=== PATIENT | male | born 1985 | race Caucasian/White ===

== ENCOUNTER 2018-10-08 13:50 | Inpatient (IN) | payer MEDICARE, OTHER ==
[2018-10-08 14:43] VITALS: BMI 13.3
[2018-10-08] MEDS ORDERED: diazePAM 5 MG TABLET PO ONE (15:30)
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
[2018-10-08] MEDS ORDERED: METHADONE HCL 10 MG TABLET (FOR DETOX USE ONLY) PO ONE ×2 (15:45→23:00)
[2018-10-08] MEDS ORDERED: LOPERAMIDE HCL 2 MG CAPSULE PO PRN (15:46)
[2018-10-08] MEDS ORDERED: MAGNESIUM CITRATE 300 ML BOTTLE PO PRN (15:46)
[2018-10-08] MEDS ORDERED: ACETAMINOPHEN 325 MG TABLET (FP) PO PRN (15:46)
[2018-10-08] MEDS ORDERED: MAGNESIUM HYDROX 2400MG/30ML ORAL SUSPENSION 30 ML CUP PO PRN (15:46)
[2018-10-08] MEDS ORDERED: MAG HYDROX/AL HYDROX/SIMETH 30 ML UNIT-DOSE CUP PO PRN (15:46)
[2018-10-08] MEDS ORDERED: MENTHOL/PHENOL 1 EACH UD MM PRN (15:46)
[2018-10-08] MEDS ORDERED: SODIUM CHLORIDE NASAL SPRAY 44 ML BOTTLE NS PRN (15:54)
[2018-10-08] MEDS: THIAMINE HCL 100 MG TABLET (FP) PO SCH (22:22)
[2018-10-08] MEDS: diazePAM 5 MG TABLET PO SCH (22:23)
[2018-10-08] MEDS: SULFAMETHOXAZOLE/TRIMETHOPRIM 800MG/160MG D.S. TABLET PO SCH (22:23)
[2018-10-08] MEDS: BACLOFEN 10 MG TABLET (FP) PO SCH (22:23)
[2018-10-08] MEDS: MELATONIN 5 MG TABLETS PO PRN (22:25)
[2018-10-09] MEDS: diazePAM 5 MG TABLET PO SCH ×3 (05:32→22:26)
[2018-10-09] MEDS: BACLOFEN 10 MG TABLET (FP) PO SCH ×3 (05:32→22:26)
[2018-10-09] MEDS ORDERED: METHADONE HCL 10 MG TABLET (FOR DETOX USE ONLY) PO SCH (10:00)
--- NOTE | 2018-10-09 10:01 | CONSULT ---
[facility] Psychiatric Consult - Data Date of interview: 10/09/18 Admission source: [facility] Identifying data: Corn Cooker approached patient for psychiatric consultation. Patient refused. Stated, " I don't need to see you."
[2018-10-09 10:04] LABS: HEMATOCRIT 21.8 % (35.4-49); HEMOGLOBIN 7.2 GM/dL (11.7-16.9); MCH 26.7 pg (25.7-33.7); MCHC 33.1 g/dl (32.0-35.9); MEAN CELL VOLUME 80.9 fl (80-96); PLATELET COUNT 420 K/MM3 (134-434); RBC 2.69 M/mm3 (4.00-5.60); RDW 21.5 % (11.9-15.9); WHITE BLOOD COUNT 6.8 K/mm3 (4.0-10.0)
[2018-10-09 10:26] LABS: ALBUMIN 2.5 g/dl (3.4-5.0); ALK PHOS 462 U/L (45-117); ANION GAP 8 MMOL/L (8-16); BILIRUBIN,TOTAL 0.2 mg/dL (0.2-1); BLOOD UREA NITROGEN 36 mg/dL (7-18); CALCIUM 8.3 mg/dL (8.5-10.1); CHLORIDE 102 mmol/L (98-107); CO2 23 mmol/L (21-32); CREATININE 1.4 mg/dL (0.55-1.3); GLUCOSE,RANDOM 106 mg/dL (74-106); POTASSIUM 4.9 mmol/L (3.5-5.1); SGOT/AST 431 U/L (15-37); SGPT/ALT 296 U/L (13-61); SODIUM 133 mmol/L (136-145)
[2018-10-09] MEDS: PRENATAL VITAMINS W/ FOLIC ACID TABLET (FP) PO SCH (11:30)
[2018-10-09] MEDS: SULFAMETHOXAZOLE/TRIMETHOPRIM 800MG/160MG D.S. TABLET PO SCH ×2 (11:31→22:26)
[2018-10-09] MEDS: diazePAM 5 MG TABLET PO PRN (11:31)
--- NOTE | 2018-10-09 11:37 | EKG ---
Test Reason : Blood Pressure : / mmHG Vent. Rate : 068 BPM Atrial Rate : 068 BPM P-R Int : 128 ms QRS Dur : 098 ms QT Int : 376 ms P-R-T Axes : 024 002 015 degrees QTc Int : 399 ms NORMAL SINUS RHYTHM NONSPECIFIC ST ABNORMALITY ABNORMAL ECG WHEN COMPARED WITH ECG OF 01-JUN-2013 16:00, NON-SPECIFIC CHANGE IN ST SEGMENT IN ANTEROLATERAL LEADS NONSPECIFIC T WAVE ABNORMALITY, WORSE IN ANTERIOR LEADS Confirmed by SIDRA BELLE, SHARLENE ([id number]) on 10/09/2018 11:36:57 AM Referred By: Confirmed By:SHARLENE VALENTE MD
--- NOTE | 2018-10-09 16:14 | PN ---
[facility] CIWA - CIWA Score Nausea/Vomitin-No Nausea/No Vomiting Muscle Tremors: None Anxiety: 2 Agitation: 0-Normal Activity Paroxysmal Sweats: 3 Orientation: 2-Disoriented Date<2 days Tacttile Disturbances: 0-None Auditory Disturbances: 1-Very Mild Visual Disturbances: 3-Moderate Sensitivity Headache: 0-None Present CIWA-Ar Total Score: 11 [facility] COWS - Scale Resting Pulse: 2= [place] 101-120 Sweatin= Chills/Flushing Restless Observation: 1= Difficult to Sit Still Pupil Size: 0= Normal to Room Light Bone or Joint Aches: 2= Severe Diffuse Aches Runny Nose/ Eye Tearin= None GI Upset > 30mins: 2= Nausea/Diarrhea Tremor Observation of Outstretched Hands: 0= None Yawning Observation: 2= >3x During Session Anxiety or Irritability: 1=Feels Anxious/Irritable Goose Flesh Skin: 3=Piloerection COWS Score: 14 S Progress Note (SOAP) Subjective: Body Aches, Sweating, Diarrhea. Objective: PATIENT A & O X 2 (UNCERTAIN ABOUT CURRENT DAY / DATE). PATIENT OBSERVED AMBULATING ON UNIT. IN NO ACUTE DISTRESS. PATIENT DENIES CHEST PAIN. PATIENT NOTED TO BE FEBRILE X 1 EARLIER IN AM, BUT AFEBRILE WHEN CHECKED LATER IN DAY. RN REPORTS THAT TYLENOL X 1 DOSE GIVEN FOR FEVER IN AM. PATIENT DENIES ANY URINARY COMPLAINTS (BURNING, PAIN, FREQUENCY, URGENCY, HESITANCY). 10/09/18 16:10 Vital Signs Temperature 98.5 F 10/09/18 13:29 Pulse Rate 85 10/09/18 13:29 Respiratory Rate 18 10/09/18 13:29 Blood Pressure 115/71 10/09/18 13:29 O2 Sat by Pulse Oximetry (%) Laboratory Tests 10/09/18 10/09/18 10/09/18 06:00 06:00 06:00 WBC RBC Hgb Hct MCV MCH MCHC RDW Plt Count MPV Sodium 133 L Potassium 4.9 Chloride 102 Carbon Dioxide 23 Anion Gap 8 BUN 36 H Creatinine 1.4 H Creat Clearance w eGFR 59.11 Random Glucose 106 Calcium 8.3 L Total Bilirubin 0.2 AST 431 H ALT 296 H Alkaline Phosphatase 462 H Total Protein 8.0 Albumin 2.5 L RPR Titer Nonreactive HIV 1&2 Antibody Screen Negative HIV P24 Antigen Negative 10/09/18 06:00 WBC 6.8 RBC 2.69 L Hgb 7.2 L Hct 21.8 L D MCV 80.9 MCH 26.7 D MCHC 33.1 RDW 21.5 H Plt Count 420 D MPV 8.0 Sodium Potassium Chloride Carbon Dioxide Anion Gap BUN Creatinine Creat Clearance w eGFR Random Glucose Calcium Total Bilirubin AST ALT Alkaline Phosphatase Total Protein Albumin RPR Titer HIV 1&2 Antibody Screen HIV P24 Antigen LABS NOTED. PATIENT HAS BEEN ANEMIC ON PREVIOUS ADMISSIONS. 10/09/18 16:10 Assessment: 10/09/18 16:10 WITHDRAWAL SYMPTOMS. ANEMIA. ELEVATED LIVER ENZYMES. 10/09/18 16:20 Plan: CONTINUE DETOX. PRN IMMODIUM FOR DIARRHEA. INCREASE DAILY PO FLUID INTAKE. REPEAT CBC TOMORROW FOR ADMISSION ABNORMALITIES / ANEMIA. HFP ON 10/11/2018 FOR ELEVATED LIVER ENZYMES NOTED ON ADMISSION.
[2018-10-09] MEDS: THIAMINE HCL 100 MG TABLET (FP) PO SCH (22:26)
[2018-10-09] MEDS: MELATONIN 5 MG TABLETS PO PRN (22:27)
[2018-10-10] MEDS: BACLOFEN 10 MG TABLET (FP) PO SCH ×3 (06:34→22:11)
[2018-10-10] MEDS: diazePAM 5 MG TABLET PO PRN ×3 (07:14→17:51)
--- NOTE | 2018-10-10 09:11 | PN ---
[facility] CIWA - CIWA Score Nausea/Vomitin-No Nausea/No Vomiting Muscle Tremors: 3 Anxiety: 3 Agitation: 0-Normal Activity Paroxysmal Sweats: 3 Orientation: 2-Disoriented Date<2 days Tacttile Disturbances: 0-None Auditory Disturbances: 0-None Visual Disturbances: 2-Mild Sensitivity Headache: 0-None Present CIWA-Ar Total Score: 13 [facility] COWS - Scale Resting Pulse: 1= [place] 81-100 Sweatin= Chills/Flushing Restless Observation: 0= Sits Still Pupil Size: 0= Normal to Room Light Bone or Joint Aches: 2= Severe Diffuse Aches Runny Nose/ Eye Tearin= None GI Upset > 30mins: 2= Nausea/Diarrhea Tremor Observation of Outstretched Hands: 2= Slight Tremor Visible Yawning Observation: 1= 1-2x During Session Anxiety or Irritability: 2=Irritable/Anxious Goose Flesh Skin: 0=Smooth Skin COWS Score: 11 S Progress Note (SOAP) Subjective: Chills, Diarrhea, Body Aches, Sweating, Tremors. Objective: PATIENT A & O X 2 (DISORIENTED ABOUT CURRENT DAY / DATE). IN NO ACUTE DISTRESS. PATIENT REPORTS HISTORY OF ANEMIA (NO TREATMENT). PATIENT REPORTS INTERMITTENT DISCHARGE OF BLOOD FROM NOSE (CHRONIC). ASIDE FROM THAT, PATIENT DENIES ANY OTHER UNUSUAL BLEEDING (EX.: WHILE BRUSHING TEETH, IN URINE OR STOOL, EASILY WOUNDING/BRUISING, ETC.). PATIENT DENIES ANY UNUSUAL URINARY SYMPTOMS (BURNING, PAIN, FREQUENCY, URGENCY, HESITANCY, ETC.) 10/10/18 09:06 Vital Signs Temperature 97.4 F L 10/10/18 06:04 Pulse Rate 91 H 10/10/18 06:04 Respiratory Rate 16 10/10/18 06:04 Blood Pressure 121/82 10/10/18 06:04 O2 Sat by Pulse Oximetry (%) Laboratory Tests 10/09/18 10/09/18 10/09/18 06:00 06:00 06:00 WBC RBC Hgb Hct MCV MCH MCHC RDW Plt Count MPV Sodium 133 L Potassium 4.9 Chloride 102 Carbon Dioxide 23 Anion Gap 8 BUN 36 H Creatinine 1.4 H Creat Clearance w eGFR 59.11 Random Glucose 106 Calcium 8.3 L Total Bilirubin 0.2 AST 431 H ALT 296 H Alkaline Phosphatase 462 H Total Protein 8.0 Albumin 2.5 L RPR Titer Nonreactive HIV 1&2 Antibody Screen Negative HIV P24 Antigen Negative 10/09/18 06:00 WBC 6.8 RBC 2.69 L Hgb 7.2 L Hct 21.8 L D MCV 80.9 MCH 26.7 D MCHC 33.1 RDW 21.5 H Plt Count 420 D MPV 8.0 Sodium Potassium Chloride Carbon Dioxide Anion Gap BUN Creatinine Creat Clearance w eGFR Random Glucose Calcium Total Bilirubin AST ALT Alkaline Phosphatase Total Protein Albumin RPR Titer HIV 1&2 Antibody Screen HIV P24 Antigen LABS NOTED. RESULTS OF UA AND REPEAT CBC PENDING. 10/10/18 09:09 Assessment: 10/10/18 09:07 WITHDRAWAL SYMPTOMS. ANEMIA. ELEVATED LIVER ENZYMES. 10/10/18 09:21 Plan: CONTINUE DETOX. INCREASE DAILY PO FLUID INTAKE. HEPATIC FUNCTION PANEL ORDERED FOR TOMORROW AM TO SEE IF ANY CHANGE IN LIVER ENZYME LEVELS. AWAITING RESULTS OF REPEAT CBC BEFORE DETERMINING WHETHER OR NOT FURTHER ACTION IS NECESSARY.
[2018-10-10 10:17] LABS: BASO % 0.6 % (0-2.0); EOS % 3.5 % (0-4.5); HEMATOCRIT 34.6 % (35.4-49); HEMOGLOBIN 11.9 GM/dL (11.7-16.9); LYMPH % 40.2 % (8-40); MCH 32.1 pg (25.7-33.7); MCHC 34.4 g/dl (32.0-35.9); MEAN CELL VOLUME 93.4 fl (80-96); MEAN PLT VOLUME 7.7 fl (7.5-11.1); MONO % 11.4 % (3.8-10.2); NEUT % 44.3 % (42.8-82.8); PLATELET COUNT 343 K/MM3 (134-434); RBC 3.71 M/mm3 (4.00-5.60); RDW 13.9 % (11.9-15.9); WHITE BLOOD COUNT 4.2 K/mm3 (4.0-10.0)
[2018-10-10] MEDS: SULFAMETHOXAZOLE/TRIMETHOPRIM 800MG/160MG D.S. TABLET PO SCH ×2 (10:41→22:11)
[2018-10-10] MEDS: PRENATAL VITAMINS W/ FOLIC ACID TABLET (FP) PO SCH (10:41)
[2018-10-10] MEDS: METHADONE HCL 5 MG TABLET (FOR DETOX USE ONLY) PO SCH (10:41)
[2018-10-10] MEDS: diazePAM 5 MG TABLET PO SCH ×2 (10:41→22:10)
--- NOTE | 2018-10-10 13:14 | PN ---
[facility] Progress Note Note: RESULTS OF REPEAT CBC NOTED. IMPROVEMENT NOTED IN ANEMIA INDICATORS IN RELATION TO YESTERDAY'S CBC LAB VALUES. ADDITIONAL REPEAT CBC ORDERED FOR TOMORROW TO CONTINUE TO MONITOR RESULTS. PATIENT MADE AWARE. PATIENT ADVISED TO IMMEDIATELY NOTIFY MEDICAL / NURSING STAFF SHOULD HE NOTICE DEVELOPMENT OF ANY UNUSUAL SYMPTOMS AT ANY TIME, INCLUDING ANY UNUSUAL BRUISING OR BLEEDING (WHILE BRUSHING TEETH ,COUGHING UP OF BLOOD, BLOOD IN URINE OR STOOL, ETC.) PATIENT VERBALIZED UNDERSTANDING OF RECOMMENDATIONS. UA RESULTS PENDING. Alpesh LOCKETT NP
[2018-10-10] MEDS: THIAMINE HCL 100 MG TABLET (FP) PO SCH (22:10)
[2018-10-11] MEDS: BACLOFEN 10 MG TABLET (FP) PO SCH ×3 (06:15→21:43)
[2018-10-11] MEDS: diazePAM 5 MG TABLET PO PRN ×2 (06:17→12:10)
[2018-10-11] MEDS: diazePAM 5 MG TABLET PO SCH ×2 (10:26→21:43)
[2018-10-11] MEDS: SULFAMETHOXAZOLE/TRIMETHOPRIM 800MG/160MG D.S. TABLET PO SCH ×2 (10:26→21:43)
[2018-10-11] MEDS: PRENATAL VITAMINS W/ FOLIC ACID TABLET (FP) PO SCH (10:26)
[2018-10-11] MEDS: METHADONE HCL 5 MG TABLET (FOR DETOX USE ONLY) PO SCH (10:27)
[2018-10-11 11:25] LABS: EOS % 5.2 % (0-4.5); HEMATOCRIT 24.3 % (35.4-49); HEMOGLOBIN 7.7 GM/dL (11.7-16.9); LYMPH % 30.2 % (8-40); MCH 25.9 pg (25.7-33.7); MCHC 31.8 g/dl (32.0-35.9); MEAN CELL VOLUME 81.4 fl (80-96); MEAN PLT VOLUME 7.9 fl (7.5-11.1); MONO % 7.4 % (3.8-10.2); NEUT % 56.2 % (42.8-82.8); PLATELET COUNT 377 K/MM3 (134-434); RBC 2.98 M/mm3 (4.00-5.60); WHITE BLOOD COUNT 6.8 K/mm3 (4.0-10.0)
[2018-10-11 11:32] LABS: ALBUMIN 2.2 g/dl (3.4-5.0); BILIRUBIN,DIRECT 0.1 mg/dL (0.0-0.2); BILIRUBIN,TOTAL 0.2 mg/dL (0.2-1); TOT PROT 7.7 g/dl (6.4-8.2)
--- NOTE | 2018-10-11 14:36 | PN ---
[facility] Progress Note (SOAP) Subjective: Patient refused to speak with process description writer Objective: 10/11/18 14:33 Last Vital Signs Temp Pulse Resp BP Pulse Ox 98.4 F 66 18 132/70 10/11/18 14:21 10/11/18 14:21 10/11/18 14:21 10/11/18 14:21 Laboratory Tests 10/09/18 10/09/18 10/09/18 06:00 06:00 06:00 WBC RBC Hgb Hct MCV MCH MCHC RDW Plt Count MPV Absolute Neuts (auto) Neutrophils % Lymphocytes % Monocytes % Eosinophils % Basophils % Nucleated RBC % Sodium 133 L Potassium 4.9 Chloride 102 Carbon Dioxide 23 Anion Gap 8 BUN 36 H Creatinine 1.4 H Creat Clearance w eGFR 59.11 Random Glucose 106 Calcium 8.3 L Total Bilirubin 0.2 Direct Bilirubin AST 431 H ALT 296 H Alkaline Phosphatase 462 H Total Protein 8.0 Albumin 2.5 L RPR Titer Nonreactive HIV 1&2 Antibody Screen Negative HIV P24 Antigen Negative 10/09/18 10/10/18 10/11/18 06:00 07:15 08:25 WBC 6.8 4.2 RBC 2.69 L 3.71 L Hgb 7.2 L 11.9 Hct 21.8 L D 34.6 L D MCV 80.9 93.4 D MCH 26.7 D 32.1 D MCHC 33.1 34.4 RDW 21.5 H 13.9 D Plt Count 420 D 343 MPV 8.0 7.7 Absolute Neuts (auto) 1.9 Neutrophils % 44.3 D Lymphocytes % 40.2 H D Monocytes % 11.4 H D Eosinophils % 3.5 Basophils % 0.6 Nucleated RBC % 0 Sodium Potassium Chloride Carbon Dioxide Anion Gap BUN Creatinine Creat Clearance w eGFR Random Glucose Calcium Total Bilirubin 0.2 Direct Bilirubin 0.1 AST 186 H ALT 197 H Alkaline Phosphatase 352 H Total Protein 7.7 Albumin 2.2 L RPR Titer HIV 1&2 Antibody Screen HIV P24 Antigen 10/11/18 08:25 WBC 6.8 RBC 2.98 L Hgb 7.7 L Hct 24.3 L D MCV 81.4 D MCH 25.9 D MCHC 31.8 L RDW 21.0 H Plt Count 377 MPV 7.9 Absolute Neuts (auto) 3.8 Neutrophils % 56.2 D Lymphocytes % 30.2 D Monocytes % 7.4 Eosinophils % 5.2 H Basophils % 1.0 Nucleated RBC % 0 Sodium Potassium Chloride Carbon Dioxide Anion Gap BUN Creatinine Creat Clearance w eGFR Random Glucose Calcium Total Bilirubin Direct Bilirubin AST ALT Alkaline Phosphatase Total Protein Albumin RPR Titer HIV 1&2 Antibody Screen HIV P24 Antigen Labs reviewed: prerenal azotemia and anemia noted Assessment: 10/11/18 14:34 Withdrawal symptoms Noted with prerenal azotemia and anemia Plan: Continue detox Prerenal azotemia: encouraged PO water intake Anemia: chronic, stable; follow up with PCP for monitoring
[2018-10-11 16:49] LABS: ANISOCYTOSIS 2+
[2018-10-11] MEDS: THIAMINE HCL 100 MG TABLET (FP) PO SCH (21:43)
[2018-10-11] MEDS: ONDANSETRON *ODT* 4 MG TABLET SL PRN (21:44)
[2018-10-12] MEDS: hydrOXYzine PAMOATE 50 MG CAPSULE (FP) PO PRN ×3 (03:07→22:12)
[2018-10-12] MEDS: BACLOFEN 10 MG TABLET (FP) PO SCH ×3 (08:02→22:11)
--- NOTE | 2018-10-12 09:49 | PN ---
S Progress Note (SOAP) Subjective: feeling better less body aches mild tremor discuss aftercare with staff Objective: 10/12/18 09:52 Vital Signs Temperature 96.9 F L 10/12/18 09:03 Pulse Rate 74 10/12/18 09:03 Respiratory Rate 18 10/12/18 09:03 Blood Pressure 93/58 L 10/12/18 09:03 O2 Sat by Pulse Oximetry (%) Laboratory Last Values WBC 6.8 K/mm3 (4.0-10.0) 10/11/18 08:25 RBC 2.98 M/mm3 (4.00-5.60) L 10/11/18 08:25 Hgb 7.7 GM/dL (11.7-16.9) L 10/11/18 08:25 Hct 24.3 % (35.4-49) L D 10/11/18 08:25 MCV 81.4 fl (80-96) D 10/11/18 08:25 MCH 25.9 pg (25.7-33.7) D 10/11/18 08:25 MCHC 31.8 g/dl (32.0-35.9) L 10/11/18 08:25 RDW 21.0 % (11.9-15.9) H 10/11/18 08:25 Plt Count 377 K/MM3 (134-434) 10/11/18 08:25 MPV 7.9 fl (7.5-11.1) 10/11/18 08:25 Absolute Neuts (auto) 3.8 K/mm3 (1.5-8.0) 10/11/18 08:25 Neutrophils % 56.2 % (42.8-82.8) D 10/11/18 08:25 Lymphocytes % 30.2 % (8-40) D 10/11/18 08:25 Monocytes % 7.4 % (3.8-10.2) 10/11/18 08:25 Eosinophils % 5.2 % (0-4.5) H 10/11/18 08:25 Basophils % 1.0 % (0-2.0) 10/11/18 08:25 Nucleated RBC % 0 % (0-0) 10/11/18 08:25 Hypochromia 1+ 10/11/18 08:25 Anisocytosis 2+ 10/11/18 08:25 Sodium 133 mmol/L (136-145) L 10/09/18 06:00 Potassium 4.9 mmol/L (3.5-5.1) 10/09/18 06:00 Chloride 102 mmol/L (98-107) 10/09/18 06:00 Carbon Dioxide 23 mmol/L (21-32) 10/09/18 06:00 Anion Gap 8 MMOL/L (8-16) 10/09/18 06:00 BUN 36 mg/dL (7-18) H 10/09/18 06:00 Creatinine 1.4 mg/dL (0.55-1.3) H 10/09/18 06:00 Creat Clearance w eGFR 59.11 (>60) 10/09/18 06:00 Random Glucose 106 mg/dL (74-106) 10/09/18 06:00 Calcium 8.3 mg/dL (8.5-10.1) L 10/09/18 06:00 Total Bilirubin 0.2 mg/dL (0.2-1) 10/11/18 08:25 Direct Bilirubin 0.1 mg/dL (0.0-0.2) 10/11/18 08:25 AST 186 U/L (15-37) H 10/11/18 08:25 ALT 197 U/L (13-61) H 10/11/18 08:25 Alkaline Phosphatase 352 U/L (45-117) H 10/11/18 08:25 Total Protein 7.7 g/dl (6.4-8.2) 10/11/18 08:25 Albumin 2.2 g/dl (3.4-5.0) L 10/11/18 08:25 RPR Titer Nonreactive (NONREACTIVE) 10/09/18 06:00 HIV 1&2 Antibody Screen Negative 10/09/18 06:00 HIV P24 Antigen Negative 10/09/18 06:00 lab noted liver enzyme elevation anemia Assessment: 10/12/18 09:53 withdrawal sx iron supplement liver enzyme elevation Plan: continue detox discuss alcohol related liver enzyme elevation and negative opiate misuse related consequences iron supplement discuss medication assisted treatment program
[2018-10-12] MEDS ORDERED: METHADONE HCL 10 MG TABLET (FOR DETOX USE ONLY) PO SCH (10:00)
[2018-10-12] MEDS ORDERED: diazePAM 5 MG TABLET PO SCH (10:00)
[2018-10-12] MEDS: PRENATAL VITAMINS W/ FOLIC ACID TABLET (FP) PO SCH (10:08)
[2018-10-12] MEDS: SULFAMETHOXAZOLE/TRIMETHOPRIM 800MG/160MG D.S. TABLET PO SCH ×2 (10:08→22:11)
[2018-10-12] MEDS: FERROUS SO4 325 MG TABLET (FP) PO SCH ×2 (10:10→22:11)
[2018-10-12] MEDS ORDERED: GABAPENTIN 100 MG CAPSULE (FP) PO ONE (10:23)
[2018-10-12] MEDS: ONDANSETRON *ODT* 4 MG TABLET SL PRN (17:12)
[2018-10-12] MEDS: THIAMINE HCL 100 MG TABLET (FP) PO SCH (22:11)
[2018-10-13] MEDS: hydrOXYzine PAMOATE 50 MG CAPSULE (FP) PO PRN ×4 (05:40→22:03)
[2018-10-13] MEDS: BACLOFEN 10 MG TABLET (FP) PO SCH ×3 (05:40→22:04)
[2018-10-13] MEDS ORDERED: METHADONE HCL 5 MG TABLET (FOR DETOX USE ONLY) PO SCH (06:00)
--- NOTE | 2018-10-13 08:53 | DS ---
[facility] Detox Discharge Summary Admission Date: 10/08/18 Discharge Date: 10/13/18 - History Present History: Alcohol Dependence, Opioid Dependence Pertinent Past History: narcan rescue kit e prescribed to [facility] - Physical Exam Results Vital Signs: Vital Signs Temperature 97 F L 10/13/18 06:06 Pulse Rate 91 H 10/13/18 06:06 Respiratory Rate 18 10/13/18 06:06 Blood Pressure 100/62 10/13/18 06:06 O2 Sat by Pulse Oximetry (%) - Treatment Hospital Course: Detox Protocol Followed, Detoxed Safely, Responded well, Discharged Condition Good, Rehab Referral Accepted - Medication Discharge Medications: Ambulatory Orders Naloxone HCl [Narcan] 4 mg NS ASDIR PRN #1 spray 10/13/18
[2018-10-13] MEDS: SULFAMETHOXAZOLE/TRIMETHOPRIM 800MG/160MG D.S. TABLET PO SCH ×2 (10:48→22:04)
[2018-10-13] MEDS: PRENATAL VITAMINS W/ FOLIC ACID TABLET (FP) PO SCH (10:48)
[2018-10-13] MEDS: FERROUS SO4 325 MG TABLET (FP) PO SCH ×2 (10:48→22:04)
--- NOTE | 2018-10-13 15:03 | HP ---
[facility] Rehab Assess/Revision - Admission History Admitted to Rehab from: [facility] Date of Admission to Rehab: 10/13/18 - Vital signs Vital Signs: Vital Signs Period Temp Pulse Resp BP Sys/Thornton Pulse Ox Last 24 Hr 96.9 F-98.1 F 91-106 16-20 100-124/62-93 - Findings Detox History & Physical reviewed: Yes Concur with findings: Yes Comments/Additional Findings: trasnferred from detox to rehab admission as per protocol Inpatient Rehab Admission - Initial Determination Are CD services needed?: Yes Free of communicable disease: Yes Not in need of hospitalization: Yes - Rehab Admission Criteria Previous failed treatment: Yes Poor recovery environment: Yes Comorbidities: Yes Lacks judgement: No Patient is meeting Inpatient Rehab admission criteria:: Yes
[2018-10-13] MEDS: ONDANSETRON *ODT* 4 MG TABLET SL PRN (17:24)
[2018-10-13] MEDS: THIAMINE HCL 100 MG TABLET (FP) PO SCH (22:02)
[2018-10-13] MEDS: MELATONIN 5 MG TABLETS PO PRN (22:03)
[2018-10-14] MEDS: BACLOFEN 10 MG TABLET (FP) PO SCH ×3 (05:01→21:02)
[2018-10-14] MEDS: hydrOXYzine PAMOATE 50 MG CAPSULE (FP) PO PRN ×4 (06:30→22:59)
--- NOTE | 2018-10-14 09:20 | PN ---
[facility] Progress Note Note: PT IS A NEW PT ADMITTED TO REHAB FROM DETOX TO REHAB YESTERDAY. PT HAS A HX OF HEROIN, ALCOHOL, XANAX AND COCAINE DEPENDENCE. HX ASTHMA, COPD, LEUKEMIA WITH S/ P BONE MARROW TRANSPLANT. PT IS C/O W/S- NAUSEA,VOMITING,BODY ACHES,FATIGUE, DECREASED APPETITE, INTERMITTENT SLEEP,ANXIETY AND CRAVING. Vital Signs 10/14/18 06:40 Temperature 97.0 F L Pulse Rate 95 H Respiratory 16 Rate Blood Pressure 120/77 Laboratory Tests 10/09/18 10/09/18 10/09/18 06:00 06:00 06:00 WBC RBC Hgb Hct MCV MCH MCHC RDW Plt Count MPV Absolute Neuts (auto) Neutrophils % Lymphocytes % Monocytes % Eosinophils % Basophils % Nucleated RBC % Hypochromia Anisocytosis Sodium 133 L Potassium 4.9 Chloride 102 Carbon Dioxide 23 Anion Gap 8 BUN 36 H Creatinine 1.4 H Creat Clearance w eGFR 59.11 Random Glucose 106 Calcium 8.3 L Total Bilirubin 0.2 Direct Bilirubin AST 431 H ALT 296 H Alkaline Phosphatase 462 H Total Protein 8.0 Albumin 2.5 L RPR Titer Nonreactive HIV 1&2 Antibody Screen Negative HIV P24 Antigen Negative 10/09/18 10/10/18 10/11/18 06:00 07:15 08:25 WBC 6.8 4.2 RBC 2.69 L 3.71 L Hgb 7.2 L 11.9 Hct 21.8 L D 34.6 L D MCV 80.9 93.4 D MCH 26.7 D 32.1 D MCHC 33.1 34.4 RDW 21.5 H 13.9 D Plt Count 420 D 343 MPV 8.0 7.7 Absolute Neuts (auto) 1.9 Neutrophils % 44.3 D Lymphocytes % 40.2 H D Monocytes % 11.4 H D Eosinophils % 3.5 Basophils % 0.6 Nucleated RBC % 0 Hypochromia Anisocytosis Sodium Potassium Chloride Carbon Dioxide Anion Gap BUN Creatinine Creat Clearance w eGFR Random Glucose Calcium Total Bilirubin 0.2 Direct Bilirubin 0.1 AST 186 H ALT 197 H Alkaline Phosphatase 352 H Total Protein 7.7 Albumin 2.2 L RPR Titer HIV 1&2 Antibody Screen HIV P24 Antigen 10/11/18 08:25 WBC 6.8 RBC 2.98 L Hgb 7.7 L Hct 24.3 L D MCV 81.4 D MCH 25.9 D MCHC 31.8 L RDW 21.0 H Plt Count 377 MPV 7.9 Absolute Neuts (auto) 3.8 Neutrophils % 56.2 D Lymphocytes % 30.2 D Monocytes % 7.4 Eosinophils % 5.2 H Basophils % 1.0 Nucleated RBC % 0 Hypochromia 1+ Anisocytosis 2+ Sodium Potassium Chloride Carbon Dioxide Anion Gap BUN Creatinine Creat Clearance w eGFR Random Glucose Calcium Total Bilirubin Direct Bilirubin AST ALT Alkaline Phosphatase Total Protein Albumin RPR Titer HIV 1&2 Antibody Screen HIV P24 Antigen A:W/S EXTREME WT LOSS ANEMIA HX LEUKEMIA PLAN:ENSURE PLUS 120 ML PO TID ENCOURAGE INCREASED PO FLUIDS BACLOFEN ORDERED MONITOR PT'S STATUS ZOFRAN PRN
--- NOTE | 2018-10-14 09:57 | HP ---
Psychiatrist Admission - Data Date of interview: 10/14/18 Admission source: [address] [place] [address] detox Identifying data: This is the first admission to [address] [place] [address] rehabilitation for this 33 years old single male homeless,unemployed supported by [facility]. Medical History: Underweight,leukema,anemia,Anemia,BA. Psychiatric History: patient reports long and extensive psychiatric history started back at 20 years old .He was dx with Bipolar disorder ,had multiple psychiatric hospitalizations .Most recent admission was in 2018 to [facility] due to severe depression ,drug use.No history of suicidality.patient reports poor compliance with psychiatric OPD care.he obtains Seroquel 200 mg po hs and 50 mg po daily,Zyprexa 5 mg po bid from local ER. Physical/Sexual Abuse/Trauma History: patient denies Vital Signs: Vital Signs - 24 hr 10/13/18 10/13/18 10/14/18 13:10 18:00 00:30 Temperature 97.1 F L 97.8 F Pulse Rate 100 H 101 H Respiratory 18 18 18 Rate Blood Pressure 114/81 103/76 10/14/18 10/14/18 03:30 06:40 Temperature 97.0 F L Pulse Rate 95 H Respiratory 18 16 Rate Blood Pressure 120/77 Allergies/Adverse Reactions: Allergies Allergy/AdvReac Type Severity Reaction Status Date / Time haloperidol [From Haldol] Allergy Severe Verified 10/08/18 15:17 ketorolac tromethamine Allergy Intermediate Hives Verified 10/08/18 15:17 [From Toradol] Date of last physical exam: 10/08/18 Concur with the findings of this exam: Yes - Substance Abuse/Tx History Hx Alcohol Use: Yes (drinker since 17 yo,heavy drinker since 23 yo) Hx Substance Use: Yes (heroin since 27 yo IV 20 bags,cocaine since 20 yo) Substance Use Type: Alcohol, Cocaine, Marijuana, Opiates Hx Substance Use Treatment: Yes (longest abstinence 6 months) Mental Status Exam - Mental Status Exam Alert and Oriented to: Time, Place, Person Cognitive Function: Grossly Intact Patient Appearance: Unkempt Mood: Sad, Anxious Affect: Labile Patient Behavior: Cooperative Speech Pattern: Clear Voice Loudness: Normal Thought Process: Goal Oriented Thought Disorder: Not Present Hallucinations: Denies Suicidal Ideation: Denies Homicidal Ideation: Denies Insight/Judgement: Fair Sleep: Fair Appetite: Poor, Weight loss Muscle strength/Tone: Normal Gait/Station: Normal Psychiatric Findings - Problem List ([place] 1, 2,3) (1) Anemia Current Visit: Yes Status: Chronic (2) Alcohol dependence Current Visit: Yes Status: Chronic (3) Asthma Current Visit: Yes Status: Chronic Qualifiers: Asthma severity: mild Asthma persistence: unspecified Asthma complication type: uncomplicated Qualified Code(s): J45.909 - Unspecified asthma, uncomplicated (4) Cocaine dependence Current Visit: Yes Status: Chronic Qualifiers: Substance use status: uncomplicated Qualified Code(s): F14.20 - Cocaine dependence, uncomplicated (5) Gastroesophageal reflux disease Current Visit: Yes Status: Chronic Qualifiers: Esophagitis presence: without esophagitis Qualified Code(s): K21.9 - Gastro -esophageal reflux disease without esophagitis (6) Hepatitis C Current Visit: Yes Status: Chronic Qualifiers: Viral hepatitis chronicity: chronic Hepatic coma status: without hepatic coma Qualified Code(s): B18.2 - Chronic viral hepatitis C (7) Opioid dependence with withdrawal Current Visit: Yes Status: Chronic (8) Bipolar II disorder Current Visit: Yes Status: Chronic - Initial Treatment Plan Initial Treatment Plan: Zyprexa 5 mg po bid,Seroquel 100 mg po hs.Will monitor progress.
[2018-10-14] MEDS: SULFAMETHOXAZOLE/TRIMETHOPRIM 800MG/160MG D.S. TABLET PO SCH ×2 (10:01→21:03)
[2018-10-14] MEDS: FERROUS SO4 325 MG TABLET (FP) PO SCH ×2 (10:01→21:02)
[2018-10-14] MEDS: PRENATAL VITAMINS W/ FOLIC ACID TABLET (FP) PO SCH (10:01)
[2018-10-14] MEDS: OLANZapine 5 MG TABLET PO SCH ×2 (11:10→21:02)
[2018-10-14] MEDS ORDERED: CYCLOBENZAPRINE HCL 10 MG TABLET (FP) PO PRN (11:11)
[2018-10-14] MEDS ORDERED: hydrOXYzine PAMOATE 50 MG CAPSULE (FP) PO SCH (14:00)
[2018-10-14] MEDS: P-EPHED 60MG/TRIPROLIDI 2.5MG TABLET PO PRN (16:29)
[2018-10-14] MEDS: guaiFENesin/D-METHORPHAN HB 10 ML UNIT-DOSE CUPS PO PRN (16:29)
[2018-10-14] MEDS: THIAMINE HCL 100 MG TABLET (FP) PO SCH (21:02)
[2018-10-14] MEDS: QUEtiapine FUMARATE 100 MG TABLET (FP) PO SCH (21:02)
[2018-10-14] MEDS: MELATONIN 5 MG TABLETS PO PRN (21:04)
[2018-10-15] MEDS: BACLOFEN 10 MG TABLET (FP) PO SCH ×3 (05:03→21:03)
[2018-10-15] MEDS: hydrOXYzine PAMOATE 50 MG CAPSULE (FP) PO PRN ×3 (05:04→16:56)
[2018-10-15] MEDS: SULFAMETHOXAZOLE/TRIMETHOPRIM 800MG/160MG D.S. TABLET PO SCH (09:46)
[2018-10-15] MEDS: FERROUS SO4 325 MG TABLET (FP) PO SCH ×2 (09:46→21:03)
[2018-10-15] MEDS: PRENATAL VITAMINS W/ FOLIC ACID TABLET (FP) PO SCH (09:46)
[2018-10-15] MEDS: OLANZapine 5 MG TABLET PO SCH ×2 (09:46→21:03)
--- NOTE | 2018-10-15 12:55 | PN ---
[facility] Progress Note Note: C/O PAIN TO RIGHT INDEX FINGER. PT IS ON BACTRIM FOR FINGER INFECTION FROM DETOX. PT REPORTS HE SHOT IV DRUG AND MISSED, HAPPENED SINCE A MONTH AGO. Vital Signs 10/15/18 06:36 Temperature 97.8 F Pulse Rate 113 H Respiratory 16 Rate Blood Pressure 116/86 Laboratory Tests 10/09/18 10/09/18 10/09/18 06:00 06:00 06:00 WBC RBC Hgb Hct MCV MCH MCHC RDW Plt Count MPV Absolute Neuts (auto) Neutrophils % Lymphocytes % Monocytes % Eosinophils % Basophils % Nucleated RBC % Hypochromia Anisocytosis Sodium 133 L Potassium 4.9 Chloride 102 Carbon Dioxide 23 Anion Gap 8 BUN 36 H Creatinine 1.4 H Creat Clearance w eGFR 59.11 Random Glucose 106 Calcium 8.3 L Total Bilirubin 0.2 Direct Bilirubin AST 431 H ALT 296 H Alkaline Phosphatase 462 H Total Protein 8.0 Albumin 2.5 L RPR Titer Nonreactive HIV 1&2 Antibody Screen Negative HIV P24 Antigen Negative 10/09/18 10/10/18 10/11/18 06:00 07:15 08:25 WBC 6.8 4.2 RBC 2.69 L 3.71 L Hgb 7.2 L 11.9 Hct 21.8 L D 34.6 L D MCV 80.9 93.4 D MCH 26.7 D 32.1 D MCHC 33.1 34.4 RDW 21.5 H 13.9 D Plt Count 420 D 343 MPV 8.0 7.7 Absolute Neuts (auto) 1.9 Neutrophils % 44.3 D Lymphocytes % 40.2 H D Monocytes % 11.4 H D Eosinophils % 3.5 Basophils % 0.6 Nucleated RBC % 0 Hypochromia Anisocytosis Sodium Potassium Chloride Carbon Dioxide Anion Gap BUN Creatinine Creat Clearance w eGFR Random Glucose Calcium Total Bilirubin 0.2 Direct Bilirubin 0.1 AST 186 H ALT 197 H Alkaline Phosphatase 352 H Total Protein 7.7 Albumin 2.2 L RPR Titer HIV 1&2 Antibody Screen HIV P24 Antigen 10/11/18 08:25 WBC 6.8 RBC 2.98 L Hgb 7.7 L Hct 24.3 L D MCV 81.4 D MCH 25.9 D MCHC 31.8 L RDW 21.0 H Plt Count 377 MPV 7.9 Absolute Neuts (auto) 3.8 Neutrophils % 56.2 D Lymphocytes % 30.2 D Monocytes % 7.4 Eosinophils % 5.2 H Basophils % 1.0 Nucleated RBC % 0 Hypochromia 1+ Anisocytosis 2+ Sodium Potassium Chloride Carbon Dioxide Anion Gap BUN Creatinine Creat Clearance w eGFR Random Glucose Calcium Total Bilirubin Direct Bilirubin AST ALT Alkaline Phosphatase Total Protein Albumin RPR Titer HIV 1&2 Antibody Screen HIV P24 Antigen RIGHT INDEX FINGER RED, PAINFUL AND SWOLLEN. DIMINISHED ROM TO MOVE FINGER JOINT. A:CELLULITIS S/P IVD INJ ABNORMAL LABS NOTED--HX CHRONIC ANEMIA ELEVATED LIVER ENZYMES PLAN;CONTINUE BACTRIM FEOSOL DIRECTED BACITRACIN OINTMENT DIRECTED REPEAT LABS CONSIDER XRAY OF RIGHT INDEX FINGER
[2018-10-15] MEDS: BACITRACIN 0.9 GM PACKET TP SCH ×2 (13:43→22:01)
[2018-10-15] MEDS: guaiFENesin/D-METHORPHAN HB 10 ML UNIT-DOSE CUPS PO PRN (16:04)
[2018-10-15] MEDS: P-EPHED 60MG/TRIPROLIDI 2.5MG TABLET PO PRN (16:56)
[2018-10-15] MEDS: QUEtiapine FUMARATE 100 MG TABLET (FP) PO SCH (21:04)
[2018-10-15] MEDS: THIAMINE HCL 100 MG TABLET (FP) PO SCH (21:04)
[2018-10-15] MEDS: MELATONIN 5 MG TABLETS PO PRN (21:05)
[2018-10-15] MEDS: ONDANSETRON *ODT* 4 MG TABLET SL PRN (22:17)
[2018-10-16] MEDS: P-EPHED 60MG/TRIPROLIDI 2.5MG TABLET PO PRN (00:30)
[2018-10-16] MEDS: hydrOXYzine PAMOATE 50 MG CAPSULE (FP) PO PRN ×3 (00:31→09:46)
[2018-10-16] MEDS: guaiFENesin/D-METHORPHAN HB 10 ML UNIT-DOSE CUPS PO PRN (00:32)
[2018-10-16] MEDS: BACLOFEN 10 MG TABLET (FP) PO SCH (06:06)
[2018-10-16 06:54] VITALS: BP 136/85; PULSE 105; TEMP 97.6
[2018-10-16] MEDS: FERROUS SO4 325 MG TABLET (FP) PO SCH (09:41)
[2018-10-16] MEDS: PRENATAL VITAMINS W/ FOLIC ACID TABLET (FP) PO SCH (09:41)
[2018-10-16] MEDS: OLANZapine 5 MG TABLET PO SCH (09:41)
[2018-10-16] MEDS: BACITRACIN 0.9 GM PACKET TP SCH (11:33)
--- NOTE | 2018-10-16 12:43 | PN ---
[facility] Progress Note Note: PATIENT NOTIFIED STAFF/RN THAT HE WANTED TO LEAVE AMA. 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 I AM GOING TO [facility] WALK IN [facility]". PATIENT ENCOURAGED TO STAY IN TREATMENT TO PREVENT RELAPSE BUT REFUSED. PATIENT EDUCATED REGARDING RISK FACTORS OF SIGNING OUT AMA SUCH RELAPSE AND OVERDOSE WITH NO POSITIVE EFFECT IN STAYING IN TREATMENT. PATIENT HAS HX OF LEUKEMIA AND HAS NOT FOLLOW UP WITH ONCOLOGIST IN OVER ONE YEAR. REVIEWED LABS WITH PATIENT AND RECOMMENDED EVALUATION IN ER, HOWEVER PATIENT REFUSED. PATIENT STARTED ON BACTRIM YESTERDAY FOR CELLULITIS OF FINGER. PRESCRIPTION SENT TO PHARMACY. PATIENT SENT [facility] ON 10/13/18 WHEN HE WAS D/ C FROM DETOX. PATIENT CONTINUED WITH AMA PROCESS AND SIGNED ALL AMA FORMS. Vital Signs Temperature 97.6 F 10/16/18 06:53 Pulse Rate 105 H 10/16/18 06:53 Respiratory Rate 16 10/16/18 06:53 Blood Pressure 136/85 10/16/18 06:53 O2 Sat by Pulse Oximetry (%)
== END 2018-10-16 10:30 | disposition left against medical advice (07) | DRG 894 ==
LOC: YASAS 13:50 → Y3N 15:38 → Y5N 10-13 20:48
PROVIDERS: ADMIT Neuromusculoskeletal Medicine & OMM; ATTEND Psychiatry & Neurology Psychiatry
PROC: HZ2ZZZZ Detoxification Services for Substance Abuse Treatment (ICD-10-PCS; 2018-10-08)
PROC: HZ42ZZZ Group Counseling for Substance Abuse Treatment, Cognitive-Behavioral (ICD-10-PCS; principal; 2018-10-13)
DX: F11.23 Opioid dependence with withdrawal (principal); F14.20 Cocaine dependence, uncomplicated; F31.81 Bipolar II disorder; L03.113 Cellulitis of right upper limb; Z68.1 Body mass index [BMI] 19.9 or less, adult; C95.11 Chronic leukemia of unspecified cell type, in remission; Z94.81 Bone marrow transplant status; F10.20 Alcohol dependence, uncomplicated; F31.9 Bipolar disorder, unspecified; F41.9 Anxiety disorder, unspecified; K21.9 Gastro-esophageal reflux disease without esophagitis; B18.2 Chronic viral hepatitis C; R63.6 Underweight; D64.9 Anemia, unspecified; R74.8 Abnormal levels of other serum enzymes; Z88.8 Allergy status to other drugs, medicaments and biological substances; Z91.5 Personal history of self-harm
CPT/HCPCS: 36415; 80053; 80076; 85025; 85027; 86593; 87389; 93005; 93010; J0475; Q0162